=== PATIENT | male | born 1970 | race Caucasian/White ===

== ENCOUNTER → 2017-03-24 | Day surgery (SDC) | payer MEDICAID ==
[~2017-03-24] MED LIST: ASPI325T PO; GENTAMICIN SULFATE 80 MG/2 ML VIAL ONE; METO50TA PO; MIDAZOLAM HCL 2 MG/2 ML VIAL ONE; ONDANSETRON HCL 4 MG/2 ML VIAL IV PUSH ONE; PERC10TA27 PO; PERC5TAB12 PO; PROPOFOL 200 MG/20 ML AMP IV ONE; SODIUM CHLORIDE 0.9% INJ 100 ML IV ONE; XANA1TAB6 PO; ZOCO40TA PO
--- NOTE | 2017-03-24 15:06 | TN ---
cc: SAMMI VILLAR M.D. DATE OF SURGERY: 03/24/2017 PREOPERATIVE DIAGNOSIS Bladder tumor, (ICD-10 code D41.4). POSTOPERATIVE DIAGNOSIS Bladder tumor, (ICD-10 code D41.4). PROCEDURE Cystourethroscopy with transurethral resection of bladder tumor (TURBT), (CPT code 89905). INDICATIONS Mr. Camacho is a 46-year-old gentleman whose twin brother has a history of transitional cell carcinoma of the bladder and Mr. Camacho recently had some evidence of microscopic hematuria and on local cystoscopy he was found to have a bladder tumor. He presents now for definitive treatment fine. FINDINGS Urethra normal. Prostatic urethra shows bilateral hyperplasia with mild obstruction. The bladder neck is normal. The trigone shows ureteral orifice normal size, shape and position, effluxing clear urine bilaterally. The bladder shows an approximately 1.6 cm sessile tumor in the posterior bladder wall. There are no satellite tumors or other additional tumors or abnormal mucosa throughout the bladder. There is no evidence of trabeculation, diverticula, cellules or calcifications. DETAILS OF PROCEDURE The procedure as well as risks and benefits were explained to the patient. An informed consent was obtained. The patient was taken to the major operative theatre where he was placed in the supine position. The patient was identified as well as the operative site. A universal timeout was performed in the standard fashion. At this time general anesthetic and prophylactic intravenous antibiotics consisting of gentamicin 80 mg was administered. After adequate anesthetic, the patient was placed in low dorsal lithotomy position, prepped and draped in usual sterile fashion. At this time serial dilation of the navicularis fossa of the urethra was performed from 12-Slovak to 26-Slovak to allow a 22.5 Slovak cystoscope with 30-degree lens to be inserted using an obturator traversing the urethra without difficulty and into the bladder. At this time the 30-degree lens was exchanged for the 70-degree lens and the entire bladder was systematically surveyed with the above findings. At this time using rigid biopsy forceps and the 30-degree lens cystoscope, the tumor was resected. Several passes were needed to resect the entire tumor as well as a small margin of normal tissue. After determining the adequate depth of resection a Bugbee probe was used to fulgurate the base of the tumor as well as some normal-appearing tissue adjacent to it. There was no evidence of perforation of the bladder. There was good hemostasis at the end of the case. The bladder was then decompressed, the cystoscope removed. The patient tolerated the procedure well, emerged from anesthetic without difficulty, and transferred to the recovery room in stable condition to be discharged home when is criteria. There are no obvious complications. MD ROSY Robb/RADHA /2:48 PM /2:57 PM
== END | disposition home or self-care (01) ==
LOC: ESDC 10:32
PROVIDERS: ATTEND Urology
DX: C67.4 Malignant neoplasm of posterior wall of bladder (principal)
CPT/HCPCS: 00912; 52234; 88307; J1580; J2250; J2405; J3010

== ENCOUNTER → 2017-05-05 | Day surgery (SDC) | payer MEDICAID ==
[~2017-05-05] MED LIST changes: +LACTATED RINGER'S 1000 ML INJ 1,000 ML ONE; -SODIUM CHLORIDE 0.9% INJ 100 ML IV ONE
--- NOTE | 2017-05-05 11:41 | TN ---
cc: SAMMI VILLAR M.D. DATE OF SURGERY: 05/05/2017 PREOPERATIVE DIAGNOSIS Bladder cancer (ICD-10 code C67.4). POSTOPERATIVE DIAGNOSIS Bladder cancer (ICD-10 code C67.4). PROCEDURE Restaging transurethral resection of bladder tumor (TURBT), (CPT code 39724). INDICATIONS Mr. Camacho is a 46-year-old gentleman who previously underwent resection of a posterior sessile bladder tumor that was approximately 1.6 cm and was found to have high-grade transitional cell carcinoma with extensive acute and chronic inflammation. There was no muscularis propria present. He presents now for restaging biopsy and re-resection. FINDINGS Normal urethra. The prostatic urethra shows bilateral hyperplasia with mild obstruction, elevated normal bladder neck. The trigone shows ureteral orifices, normal size, shape and position, effluxing clear urine bilaterally. At the posterior bladder wall where the previous tumor was resected is evidence of nice healing tissue with some erythema circumferentially but no areas of suspicious lesions, residual tumor or other abnormalities. There is no evidence of trabeculation, diverticula, cellules or calcifications. PROCEDURE IN DETAIL The procedure as well as the risks and benefits were explained to the patient. Informed consent was obtained. The patient was taken to the major operating theater where he was placed in a supine position. The patient was identified as well as the operative site. The universal timeout was formed in standard fashion. At this time attempts at passing the 22.5 Bangladeshi obturator and sheath were unsuccessful and dilation of the meatus was performed using Dayami sounds from 16 Bangladeshi to 28 Bangladeshi so that the 22.5 Bangladeshi cystoscope with a 30 degree lens could be inserted without difficulty. This was placed all the way into the bladder where the entire bladder was systematically surveyed. The 30 degree lens was exchanged for the 70 degree lens. At this time attention was directed to the previous biopsy site and using rigid biopsy forceps the entire previous biopsy site was resected to the adequate depth to include muscle. There was no evidence of any perforation. A Bugbee probe was used to fulgurate the previous biopsy site as well as some additional normal tissue surrounding it. The specimens were sent for final pathological evaluation. After confirming hemostasis and no perforation the bladder was decompressed and the scope removed. The patient tolerated the procedure well, emerged from anesthetic without difficulty and was transferred to the recovery room in stable condition to be discharged home when criteria is met. There was no obvious complication. MD ROSY Robb/RADHA /11:14 AM /11:21 AM [place]
== END | disposition home or self-care (01) ==
LOC: ESDC 08:52
PROVIDERS: ATTEND Urology
DX: C67.4 Malignant neoplasm of posterior wall of bladder (principal)
CPT/HCPCS: 00912; 52234; 88307; J1580; J2250; J2405; J3010; J7120; 88305

== ENCOUNTER 2018-02-16 13:22 | Observation (INO) ==
[2018-02-16] MEDS ORDERED: Aspirin 325 MG Tablet PO ONE (13:32)
--- NOTE | 2018-02-16 13:42 | ED ---
HPI General Chief complaint: Chest Pain Stated complaint: Chest Pain x2days Hx of Heart Attack Time Seen by Provider: 02/16/18 13:32 History of Present Illness HPI narrative: 47-year-old male here for evaluation of chest pain. Pain started 2 days ago, comes and goes, located in the mid chest, dull, no radiation , rated 4 out of 10, no relation to physical activity, no sweating or palpitations, when it comes it lasts about a minute and goes away on its own. Patient had a cookout 2 days ago and thought it was gas, he tried over-the- counter gas medications with no help, he says the pain is been going on and off since then, no shortness of breath, no fever cough or chills or night sweats. On October 2010 he had a STEMI and had stenosis in mid segment of circumflex and was repaired using drug-eluting Xience 3 x 18 ml stent. He has been taken aspirin, simvastatin and metoprolol since then. Is compliant with his medications and follows up with his primary care physician Dr. Bah. Related Data Home Medications Medication Instructions Recorded Confirmed alprazolam [Xanax] 1 mg PO BID PRN 02/16/18 02/16/18 coenzyme Q10 [CoQ-10] 200 mg PO DAILY 02/16/18 02/16/18 metoprolol tartrate 25 mg PO HS 02/16/18 oxycodone-acetaminophen [Percocet] 1 tab PO Q4-6H PRN 02/16/18 02/16/18 simvastatin See Label Instructions .ROUTE 02/16/18 02/16/18 .COMPLEX zolpidem [Ambien] 1 tab PO HS PRN 02/16/18 02/16/18 Allergies Allergy/AdvReac Type Severity Reaction Status Date / Time No Known Allergies Allergy none Uncoded 02/16/18 13:47 Review of Systems Except as stated in HPI: all other systems reviewed are negative [facility] Medical History Medical History Anxiety (Acute) Back pain (Acute) Bladder cancer (Acute) Heart attack (Acute) Kidney stone (Acute) Surgical History Surgical History Stented coronary artery (Acute) Social History Social History Substance History: No History of Abuse Second Hand Smoke Exposure: No Smoking Status: Former smoker Tobacco Type: Cigarettes How Often Do You Have a Drink Containing Alcohol: Monthly or less Recent Travel in [facility] within the Last 8 Weeks: No Recent Out of Country Travel within the Last 8 Weeks: No Exam Narrative Exam Narrative: GENERAL: Alert oriented 3 no acute distress. SKIN: Focused skin assessment warm/dry. HEAD: Atraumatic. Normocephalic. EYES: Pupils equal and round. No scleral icterus. No injection or drainage. ENT: No nasal bleeding or discharge. Mucous membranes pink and moist. NECK: Trachea midline. No JVD. CARDIOVASCULAR: Regular rate and rhythm. No murmur appreciated. RESPIRATORY: No accessory muscle use. Clear to auscultation. Breath sounds equal bilaterally. GASTROINTESTINAL: Abdomen soft, non-tender, nondistended. Hepatic and splenic margins not palpable. MUSCULOSKELETAL: No obvious deformities. No clubbing. No cyanosis. No edema. NEUROLOGICAL: Awake and alert. No obvious cranial nerve deficits. Motor grossly within normal limits. Normal speech. PSYCHIATRIC: Appropriate mood and affect; insight and judgment normal. Course Initial Documented Vital Signs Pulse Rate 56 L 02/16/18 13:25 Respiratory Rate 18 02/16/18 13:25 Blood Pressure 154/85 H 02/16/18 13:25 Pulse Oximetry 98 02/16/18 13:25 Last Documented Vital Signs Temperature 97.9 F 02/16/18 13:30 Pulse Rate 51 L 02/16/18 15:20 Respiratory Rate 18 02/16/18 15:20 Blood Pressure 113/76 02/16/18 15:20 Pulse Oximetry 97 02/16/18 15:20 Medical Decision Making [facility] Narrative Medical decision making narrative: 47-year-old male history of coronary artery disease status post stent placed on October 2010 here for evaluation of chest pain. Vitals are stable, first EKG shows no ST segment elevation or depression although shows T-wave inversion in lead III and V2. First troponin is negative , patient will be admitted for chest pain center to rule out [place]. Lab Data Result diagrams: 02/16/18 13:41 02/16/18 13:41 Lab Results 02/16/18 02/16/18 02/16/18 Range/Units 13:41 13:41 13:41 CBC w Diff Auto diff final WBC 7.6 (4.0-11.0) th/mm3 RBC 5.44 (4.50-5.90) mil/mm3 Hgb 16.5 (13.0-17.0) gm/dL Hct 49.8 (39.0-51.0) % MCV 91.6 (80.0-100.0) fL MCH 30.4 (27.0-34.0) pg MCHC 33.2 (32.0-36.0) % RDW 12.6 (11.6-17.2) % Plt Count 265 (150-450) th/mm3 MPV 9.1 (7.0-11.0) fL Neut % (Auto) 59.0 (16.0-70.0) % Lymph % (Auto) 29.8 (9.0-44.0) % [place] % (Auto) 7.6 (0.0-8.0) % Eos % (Auto) 2.8 (0.0-4.0) % Baso % (Auto) 0.8 (0.0-2.0) % Neut # (Auto) 4.4 (1.8-7.7) th/mm3 Lymph # (Auto) 2.2 (1.0-4.8) th/mm3 [place] # (Auto) 0.6 (0.0-0.9) th/mm3 Eos # (Auto) 0.2 (0.0-0.4) th/mm3 Baso # (Auto) 0.1 (0.0-0.2) th/mm3 WBC Differential . Differential Comment . PT 11.0 (9.8-11.6) sec INR 1.1 Ratio APTT 24.1 L (24.3-30.1) sec D-Dimer Quant (PE/DVT) 0.26 (0.00-0.50) mg/L FEU Sodium (136-145) meq/L Potassium (3.5-5.1) meq/L Chloride (98-107) meq/L Carbon Dioxide (21.0-32.0) meq/L Anion Gap (5-15) meq/L BUN (7-18) mg/dL Creatinine (0.60-1.30) mg/dL Estimated GFR (>89) mL/min Random Glucose (74-106) mg/dL Calcium (8.5-10.1) mg/dL Magnesium (1.5-2.5) mg/dL Total Bilirubin (0.2-1.0) mg/dL AST (15-37) U/L ALT (12-78) U/L Alkaline Phosphatase (45-117) U/L Total Creatine Kinase (39-308) U/L Troponin I (0.02-0.05) ng/mL B-Natriuretic Peptide 35 (0-100) pg/mL Total Protein (6.4-8.2) g/dL Albumin (3.4-5.0) g/dL Lipase (73-393) U/L 02/16/18 Range/Units 13:41 CBC w Diff WBC (4.0-11.0) th/mm3 RBC (4.50-5.90) mil/mm3 Hgb (13.0-17.0) gm/dL Hct (39.0-51.0) % MCV (80.0-100.0) fL MCH (27.0-34.0) pg MCHC (32.0-36.0) % RDW (11.6-17.2) % Plt Count (150-450) th/mm3 MPV (7.0-11.0) fL Neut % (Auto) (16.0-70.0) % Lymph % (Auto) (9.0-44.0) % [place] % (Auto) (0.0-8.0) % Eos % (Auto) (0.0-4.0) % Baso % (Auto) (0.0-2.0) % Neut # (Auto) (1.8-7.7) th/mm3 Lymph # (Auto) (1.0-4.8) th/mm3 [place] # (Auto) (0.0-0.9) th/mm3 Eos # (Auto) (0.0-0.4) th/mm3 Baso # (Auto) (0.0-0.2) th/mm3 WBC Differential Differential Comment PT (9.8-11.6) sec INR Ratio APTT (24.3-30.1) sec D-Dimer Quant (PE/DVT) (0.00-0.50) mg/L FEU Sodium 139 (136-145) meq/L Potassium 4.2 (3.5-5.1) meq/L Chloride 105 (98-107) meq/L Carbon Dioxide 28.8 (21.0-32.0) meq/L Anion Gap 5 (5-15) meq/L BUN 10 (7-18) mg/dL Creatinine 1.00 (0.60-1.30) mg/dL Estimated GFR 79 L (>89) mL/min Random Glucose 87 (74-106) mg/dL Calcium 8.5 (8.5-10.1) mg/dL Magnesium 1.9 (1.5-2.5) mg/dL Total Bilirubin 0.3 (0.2-1.0) mg/dL AST 17 (15-37) U/L ALT 30 (12-78) U/L Alkaline Phosphatase 84 (45-117) U/L Total Creatine Kinase 63 (39-308) U/L Troponin I Less than 0.02 L (0.02-0.05) ng/mL B-Natriuretic Peptide (0-100) pg/mL Total Protein 7.3 (6.4-8.2) g/dL Albumin 3.7 (3.4-5.0) g/dL Lipase 142 (73-393) U/L Imaging Data Radiologist's impression: Chest X-Ray 02/16/18 13:33 CONCLUSION: 1. Minimal bibasilar linear parenchymal opacities likely reflecting atelectasis. Discharge Plan Discharge Disposition Patient Disposition: 30 Still Patient Discharge Condition Condition: Stable Discharge Details Diagnosis: Chest pain Physicians Team ED Provider: Armando Lin Primary Care Provider: Otto Bah Attending Provider: Angie Lozada Discharge Interventions Interventions: Vital Signs Last Done: 02/16/18 15:20 Status ED Status: Admitted Observation Patient
[2018-02-16 13:49] LABS: Baso # (Auto) 0.1 th/mm3 (0.0-0.2); Baso % (Auto) 0.8 % (0.0-2.0); Eos # (Auto) 0.2 th/mm3 (0.0-0.4); Eos % (Auto) 2.8 % (0.0-4.0); Hematocrit 49.8 % (39.0-51.0); Hemoglobin 16.5 gm/dL (13.0-17.0); Lymph # (Auto) 2.2 th/mm3 (1.0-4.8); Lymph % (Auto) 29.8 % (9.0-44.0); Mean Corpuscular HGB Conc 33.2 % (32.0-36.0); Mean Corpuscular Hemoglobin 30.4 pg (27.0-34.0); Mean Corpuscular Volume 91.6 fL (80.0-100.0); Mean Platelet Volume 9.1 fL (7.0-11.0); Mono # (Auto) 0.6 th/mm3 (0.0-0.9); Mono % (Auto) 7.6 % (0.0-8.0); Neut # (Auto) 4.4 th/mm3 (1.8-7.7); Platelet Count 265 th/mm3 (150-450); Red Blood Count 5.44 mil/mm3 (4.50-5.90); Red Cell Distribution Width 12.6 % (11.6-17.2); White Blood Count 7.6 th/mm3 (4.0-11.0)
[2018-02-16 13:58] LABS: Chloride 105 meq/L (98-107); Potassium 4.2 meq/L (3.5-5.1); Sodium 139 meq/L (136-145)
[2018-02-16 14:02] LABS: Albumin 3.7 g/dL (3.4-5.0); Anion Gap 5 meq/L (5-15); Calcium 8.5 mg/dL (8.5-10.1); Carbon Dioxide 28.8 meq/L (21.0-32.0); Lipase 142 U/L (73-393)
[2018-02-16 14:03] LABS: Blood Urea Nitrogen 10 mg/dL (7-18); Glucose,Random 87 mg/dL (74-106); Magnesium 1.9 mg/dL (1.5-2.5)
[2018-02-16 14:05] LABS: Alanine Aminotransferase 30 U/L (12-78); Aspartate Aminotransferase 17 U/L (15-37); Glomerular Filtration Rate 79 mL/min (>89)
[2018-02-16 14:07] LABS: Total Protein 7.3 g/dL (6.4-8.2)
[2018-02-16 14:19] LABS: Activated Partial Thrombo Time 24.1 sec (24.3-30.1); INR 1.1 Ratio
[2018-02-16 14:24] LABS: D-Dimer 0.26 mg/L FEU (0.00-0.50)
--- NOTE | 2018-02-16 14:54 | XR ---
EXAM DATE: 02/16/2018 1:49 PM EDT AGE/SEX: 47 years / Male INDICATIONS: . Chest pain. CLINICAL DATA: This is the patient's initial encounter. Patient reports that signs and symptoms have been present for 2 days and indicates a pain score of 7/10. MEDICAL/SURGICAL HISTORY: Hypertension. Myocardial infarction. . Cardiac stent. COMPARISON: [facility] [place], CHEST SINGLE AP, 11/21/2010. . FINDINGS: Minimal linear parenchymal opacities at the lung bases. The cardiomediastinal contours are stable. Osseous structures are intact. CONCLUSION: 1. Minimal bibasilar linear parenchymal opacities likely reflecting atelectasis. Electronically signed by: Jaswant Ansari MD 02/16/2018 2:53 PM EDT
[2018-02-16 15:20] LABS: Alkaline Phosphatase 84 U/L (45-117); Creatine Kinase 63 U/L (39-308)
[2018-02-16] MEDS ORDERED: Pantoprazole Inj 40 MG Vial IV.PUSH STA (15:37)
[2018-02-16] MEDS ORDERED: Acetaminophen 500 MG Tablet PO PRN (16:20)
--- NOTE | 2018-02-16 16:54 | P.HP ---
History of Present Illness Primary Care Physician: Otto Bah MD Chief Complaint: Chest pain History of Present Illness: Pt is a pleasant 47-year-old male with a hx of STEMI in 2010, Blader CA, and kidney stones who presented to the ED for evaluation of chest pain. Pt states that Pain started 2 days ago as a 9/10 sharp, non-radiating pain lasting for 5 minutes. The episodes reoccur several times a day. Exacerbating factors include eating food, and relieving factors are sitting up.Pain is not similar to the pain he had with previous RI and is not associated with physical activity. Pt denies diaphoresis, SOB, palpitations. pt also reports 1 day hx of constipation which was relieved with OTC stool softener and nausea that is now resolved. On October 2010 he had a STEMI and had stenosis in mid segment of circumflex and was repaired using drug-eluting Xience 3 x 18 ml stent. He has been taken aspirin, simvastatin and metoprolol since then. Is compliant with his medications and follows up with his primary care physician Dr. Bah. Inpatient Certification: I certify that the inpatient services were ordered in accordance with Medicare regulations governing the order. This includes certification that hospital inpatient services are reasonable and necessary and in the case of services not specified as inpatient-only under 42 CFR 419.22(n), that they are appropriately provided as inpatient services in accordance to with the 2-midnight benchmark under 43 CFR 412.3(e) Review of Systems All other systems reviewed negative except as stated in HPI PMFSH - History History Provided By: Patient, Family Member - Medical History Medical History: Medical History (Last Updated 02/16/18 @ 14:22 by Jennifer Baker) Anxiety Back pain Bladder cancer Heart attack Kidney stone - Surgical History Surgical History: Surgical History (Last Updated 02/16/18 @ 14:22 by Jennifer Baker) Stented coronary artery - Tobacco History Second Hand Smoke Exposure: No Tobacco Use In Past 30 Days: No Smoking Status: Former smoker Tobacco Type: Cigarettes - Alcohol History How Often Do You Have a Drink Containing Alcohol: Monthly or less - Substance Use History Substance History: No History of Abuse - Travel History Recent Travel in the [place] Within the Last 8 Weeks: No Recent Travel Out of the Country Within the Last 8 Weeks: No - Immunization History Tetanus Immunization: Unsure Hx Influenza Vaccine This Season: Yes Medications and Allergies Active Medications: Active Medications Acetaminophen (Tylenol) 500 mg PO Q4H PRN PRN Reason: HEADACHE Alprazolam (Xanax) 1 mg PO BID PRN PRN Reason: Anxiety Aspirin (Aspirin) 325 mg PO DAILY [facility] Famotidine (Pepcid) 20 mg PO BID [facility] Metoprolol Tartrate (Lopressor) 25 mg PO HS [facility] Pravastatin Sodium (Pravachol) 40 mg PO Q2D [facility] Sodium Chloride (Ns Flush) 2 ml IV.FLUSH BID [facility]EDRO Sodium Chloride (Ns Flush) 2 ml IV.FLUSH PRN PRN PRN Reason: FLUSH AFTER USING IV ACCESS Zolpidem Tartrate (Ambien) 10 mg PO HS PRN PRN Reason: insomnia Allergies Allergy/AdvReac Type Severity Reaction Status Date / Time No Known Allergies Allergy none Uncoded 02/16/18 13:47 Home Medications Medication Instructions Recorded Confirmed Type alprazolam [Xanax] 1 mg PO BID PRN 02/16/18 02/16/18 History coenzyme Q10 [CoQ-10] 200 mg PO DAILY 02/16/18 02/16/18 History metoprolol tartrate 25 mg PO HS 02/16/18 History oxycodone-acetaminophen [Percocet] 1 tab PO Q4-6H PRN 02/16/18 02/16/18 History simvastatin See Label Instructions .ROUTE 02/16/18 02/16/18 History .COMPLEX zolpidem [Ambien] 1 tab PO HS PRN 02/16/18 02/16/18 History Exam Vital signs: Vital Signs 02/16/18 13:25 02/16/18 13:30 02/16/18 14:20 Temperature 97.9 F Pulse Rate 56 L Respiratory Rate 18 18 16 Blood Pressure 154/85 H 149/88 H Pulse Oximetry 98 97 02/16/18 15:09 02/16/18 15:20 Temperature Pulse Rate 59 L 51 L Respiratory Rate 18 Blood Pressure 111/68 113/76 Pulse Oximetry 97 97 Intake & Output 02/15/18 02/16/18 02/16/18 18:59 06:59 18:59 Weight 82 kg Narrative: GENERAL: well developed, obese male, in NAD. SKIN: Warm and dry. HEAD: Atraumatic. Normocephalic. EYES: Pupils equal and round. No scleral icterus. No injection or drainage. ENT: No nasal bleeding or discharge. Mucous membranes pink and moist. NECK: Trachea midline. No JVD. CARDIOVASCULAR: Regular rate and rhythm. No murmurs, rubs, or gallops RESPIRATORY: No accessory muscle use. Clear to auscultation. Breath sounds equal bilaterally. GASTROINTESTINAL: Abdomen soft, non-tender, nondistended. Hepatic and splenic margins not palpable. negative Claudio sign MUSCULOSKELETAL: Extremities without clubbing, cyanosis, or edema. No obvious deformities. NEUROLOGICAL: Awake and alert. No obvious cranial nerve deficits. Motor grossly within normal limits. Five out of 5 muscle strength in the arms and legs. Normal speech. PSYCHIATRIC: Appropriate mood and affect; insight and judgment normal. - Constitutional no acute distress - Routine HEENT Exam Head: Present: normocephalic, atraumatic Eye: Present: EOMI, PERRL ENT: Present: mucous membranes moist - Routine Neck Exam Present: supple, full ROM - Routine Chest/Breast/Axilla Exam Chest wall: Absent: tenderness - Routine Respiratory Exam Present: CTA bilaterally. Absent: accessory muscle use - Routine Cardiovascular Exam Present: RRR, S1, S2 - Routine Abdominal Exam Present: soft, normoactive bowel sounds - Routine Extremities Exam Absent: cyanosis - Routine Skin Exam Present: intact - Routine Neurological Exam Present: alert, oriented X3 Results - Labs CBC & Chem 7: 02/16/18 13:41 02/16/18 13:41 Labs: Laboratory Results - last 24 hr 02/16/18 02/16/18 02/16/18 13:41 13:41 13:41 CBC w Diff Auto diff final WBC 7.6 RBC 5.44 Hgb 16.5 Hct 49.8 MCV 91.6 MCH 30.4 MCHC 33.2 RDW 12.6 Plt Count 265 MPV 9.1 Neut % (Auto) 59.0 Lymph % (Auto) 29.8 [place] % (Auto) 7.6 Eos % (Auto) 2.8 Baso % (Auto) 0.8 Neut # (Auto) 4.4 Lymph # (Auto) 2.2 [place] # (Auto) 0.6 Eos # (Auto) 0.2 Baso # (Auto) 0.1 WBC Differential . Differential Comment . PT 11.0 INR 1.1 APTT 24.1 L D-Dimer Quant (PE/DVT) 0.26 Sodium Potassium Chloride Carbon Dioxide Anion Gap BUN Creatinine Estimated GFR Random Glucose Calcium Magnesium Total Bilirubin AST ALT Alkaline Phosphatase Total Creatine Kinase Troponin I B-Natriuretic Peptide 35 Total Protein Albumin Lipase 02/16/18 13:41 CBC w Diff WBC RBC Hgb Hct MCV MCH MCHC RDW Plt Count MPV Neut % (Auto) Lymph % (Auto) [place] % (Auto) Eos % (Auto) Baso % (Auto) Neut # (Auto) Lymph # (Auto) [place] # (Auto) Eos # (Auto) Baso # (Auto) WBC Differential Differential Comment PT INR APTT D-Dimer Quant (PE/DVT) Sodium 139 Potassium 4.2 Chloride 105 Carbon Dioxide 28.8 Anion Gap 5 BUN 10 Creatinine 1.00 Estimated GFR 79 L Random Glucose 87 Calcium 8.5 Magnesium 1.9 Total Bilirubin 0.3 AST 17 ALT 30 Alkaline Phosphatase 84 Total Creatine Kinase 63 Troponin I Less than 0.02 L B-Natriuretic Peptide Total Protein 7.3 Albumin 3.7 Lipase 142 - Imaging Impressions Chest X-Ray 02/16/18 13:33 CONCLUSION: 1. Minimal bibasilar linear parenchymal opacities likely reflecting atelectasis. Caprini VTE Risk Assessment Caprini Risk Assessment Model: Point Value = 1 Point Value = 2 Point Value = 3 Point Value = 5 Age 41-60 Minor surgery BMI > 25 kg/m2 Swollen legs Varicose veins or History of unexplained or recurrent spontaneous Oral contraceptives or hormone replacement Sepsis (< 1 month) Serious lung disease, including pneumonia (< 1 month) Abnormal pulmonary function Acute myocardial infarction Congestive heart failure (< 1 month) History of inflammatory bowel disease Medical patient at bed rest Age 61-74 Arthroscopic surgery Major open surgery (> 45 min) Laparoscopic surgery (> 45 min) Malignancy Confined to bed (> 72 hours) Immobilizing plaster cast Central venous access Age >= 75 History of VTE Family history of VTE Factor V Leiden Prothrombin [id number] Lupus anticoagulant Anticardiolipin antibodies Elevated serum homocysteine Heparin-induced thrombocytopenia Other congenital or acquired thrombophilia Stroke (< 1 month) Elective arthroplasty Hip, pelvis, or leg fracture Acute spinal cord injury (< 1 month) Prophylaxis Regimen: Total Risk Factor Score Risk Level Prophylaxis Regimen 0-1 Low Early ambulation 2 Moderate Order ONE of the following: *Sequential Compression Device (SCD) *Heparin 5000 units SQ BID 3-4 Higher Order ONE of the following medications: *Heparin 5000 units SQ TID *Enoxaparin/Lovenox 40 mg SQ daily (WT < 150 kg, CrCl > 30 mL/min) *Enoxaparin/Lovenox 30 mg SQ daily (WT < 150 kg, CrCl > 10-29 mL/min) *Enoxaparin/Lovenox 30 mg SQ BID (WT < 150 kg, CrCl > 30 mL/min) AND/OR *Sequential Compression Device (SCD) 5 or more Highest Order ONE of the following medications: *Heparin 5000 units SQ TID (Preferred with Epidurals) *Enoxaparin/Lovenox 40 mg SQ daily (WT < 150 kg, CrCl > 30 mL/min) *Enoxaparin/Lovenox 30 mg SQ daily (WT < 150 kg, CrCl > 10-29 mL/min) *Enoxaparin/Lovenox 30 mg SQ BID (WT < 150 kg, CrCl > 30 mL/min) AND *Sequential Compression Device (SCD) Assessment and Plan - Plan 1. CP, nonspecified pt has a 2 day hx of waxing and waning 9/10 CP associated with diaphoresis. Pain is not increased with activity and is non-radiating. Troponin level at the ED was normal and 2 EKGs obtained were unchanged from previous Due to previous hx of STEMI with a stent placement pt will be admitted to the CP clinic for further observation obtain serial Troponin Repeat EKG 2. Bladder CA, resolved pt has been following up with Urologist 3. Hypertension, stable Pt has a hx of HTN His BP has been stable. Continue home medication follow up with PCP 4. Hyperlipidemia, chronic continue home medication F/U with PCP
--- NOTE | 2018-02-16 17:24 | P.HPIM ---
History of Present Illness Primary Care Physician: Otto Bah MD Chief Complaint: Chest pain History of Present Illness: Patient is a very pleasant 47-year-old gentleman with a history of coronary artery disease in 2011 status post cardiac stenting and catheterization. Patient has been taking metoprolol and atorvastatin. He reports 2-3 days of intermittent nonradiating spontaneously. It is exacerbated by food and improved by changing position. He does exercise on a treadmill without chest pain or shortness of breath unexpected for the degree of exercise. He notes no fevers or chills. No recent cough. He is not currently a smoker. The patient is come to the hospital for further evaluation. He is concerned that it is gastrointestinal related. He has not tried any Tums or Pepcid at home. For evaluation of atypical chest discomfort - Diagnosis (1) Abdominal pain (2) Chest pain Inpatient Certification: I certify that the inpatient services were ordered in accordance with Medicare regulations governing the order. This includes certification that hospital inpatient services are reasonable and necessary and in the case of services not specified as inpatient-only under 42 CFR 419.22(n), that they are appropriately provided as inpatient services in accordance to with the 2-midnight benchmark under 43 CFR 412.3(e) Review of Systems All other systems reviewed negative except as stated in HPI Cardiovascular: Reports chest pain Gastrointestinal: Reports constipation, Reports excessive passing of gas PMFSH - History History Provided By: Patient, Family Member - Medical History Medical History: Medical History (Last Reviewed 02/16/18 @ 17:19 by Angie Lozada MD) Anxiety Back pain Bladder cancer Heart attack Kidney stone - Surgical History Surgical History: Surgical History (Last Reviewed 02/16/18 @ 17:19 by Angie Lozada MD) Stented coronary artery - Family History Family History: Family History (Last Updated 02/16/18 @ 17:19 by Angie Lozada MD) Other Bladder cancer - Tobacco History Second Hand Smoke Exposure: No Tobacco Use In Past 30 Days: No Smoking Status: Former smoker Tobacco Type: Cigarettes - Alcohol History How Often Do You Have a Drink Containing Alcohol: Monthly or less - Substance Use History Substance History: No History of Abuse - Travel History Recent Travel in the [place] Within the Last 8 Weeks: No Recent Travel Out of the Country Within the Last 8 Weeks: No - Immunization History Tetanus Immunization: Unsure Hx Influenza Vaccine This Season: Yes Medications and Allergies Active Medications: Active Medications Acetaminophen (Tylenol) 500 mg PO Q4H PRN PRN Reason: HEADACHE Alprazolam (Xanax) 1 mg PO BID PRN PRN Reason: Anxiety Aspirin (Aspirin) 325 mg PO DAILY [facility] Famotidine (Pepcid) 20 mg PO BID [facility] Metoprolol Tartrate (Lopressor) 25 mg PO HS [facility] Pravastatin Sodium (Pravachol) 40 mg PO Q2D PEDRO Sodium Chloride (Ns Flush) 2 ml IV.FLUSH BID PEDRO Sodium Chloride (Ns Flush) 2 ml IV.FLUSH PRN PRN PRN Reason: FLUSH AFTER USING IV ACCESS Zolpidem Tartrate (Ambien) 10 mg PO HS PRN PRN Reason: insomnia Allergies Allergy/AdvReac Type Severity Reaction Status Date / Time No Known Allergies Allergy none Uncoded 02/16/18 13:47 Home Medications Medication Instructions Recorded Confirmed Type alprazolam [Xanax] 1 mg PO BID PRN 02/16/18 02/16/18 History coenzyme Q10 [CoQ-10] 200 mg PO DAILY 02/16/18 02/16/18 History metoprolol tartrate 25 mg PO HS 02/16/18 History oxycodone-acetaminophen [Percocet] 1 tab PO Q4-6H PRN 02/16/18 02/16/18 History simvastatin See Label Instructions .ROUTE 02/16/18 02/16/18 History .COMPLEX zolpidem [Ambien] 1 tab PO HS PRN 02/16/18 02/16/18 History Exam Vital signs: Vital Signs 02/16/18 13:25 02/16/18 13:30 02/16/18 14:20 Temperature 97.9 F Pulse Rate 56 L Respiratory Rate 18 18 16 Blood Pressure 154/85 H 149/88 H Pulse Oximetry 98 97 02/16/18 15:09 02/16/18 15:20 Temperature Pulse Rate 59 L 51 L Respiratory Rate 16 18 Blood Pressure 111/68 113/76 Pulse Oximetry 97 97 Intake & Output 02/15/18 02/16/18 02/16/18 18:59 06:59 18:59 Weight 82 kg Narrative: GENERAL: Patient calm resting and without complaints SKIN: Warm and dry. No rashes or ecchymotic injuries EYES: Pupils equal and round. No scleral icterus. No injection or drainage. ENT: External ear exam normal. No acute nasal bleeding or discharge. Mucous membranes pink and moist. CARDIOVASCULAR: Regular rate and rhythm. No murmurs gallops or rubs appreciated RESPIRATORY: Good air flow and effort without accessory muscle use. Clear to auscultation. Breath sounds equal bilaterally. GASTROINTESTINAL: Abdomen soft, non-tender, nondistended. Hepatic and splenic margins not palpable. MUSCULOSKELETAL: Extremities without clubbing, cyanosis, or edema. No obvious deformities. NEUROLOGICAL: Awake and alert. No obvious cranial nerve deficits. Motor grossly within normal limits. Five out of 5 muscle strength in the arms and legs. Normal speech. Results - Labs CBC & Chem 7: 02/16/18 13:41 02/16/18 13:41 Labs: Short CBC 02/16/18 Range/Units 13:41 WBC 7.6 (4.0-11.0) th/mm3 Hgb 16.5 (13.0-17.0) gm/dL Hct 49.8 (39.0-51.0) % Plt Count 265 (150-450) th/mm3 BMP 02/16/18 13:41 Sodium 139 Potassium 4.2 Chloride 105 Carbon Dioxide 28.8 BUN 10 Creatinine 1.00 Calcium 8.5 Cardiac Enzymes 02/16/18 Range/Units 13:41 Total Creatine Kinase 63 (39-308) U/L Troponin I Less than 0.02 L (0.02-0.05) ng/mL Liver Function 02/16/18 Range/Units 13:41 Total Bilirubin 0.3 (0.2-1.0) mg/dL AST 17 (15-37) U/L ALT 30 (12-78) U/L Alkaline Phosphatase 84 (45-117) U/L Albumin 3.7 (3.4-5.0) g/dL - Imaging Impressions Chest X-Ray 02/16/18 13:33 CONCLUSION: 1. Minimal bibasilar linear parenchymal opacities likely reflecting atelectasis. Caprini VTE Risk Assessment Caprini VTE Risk Assessment: No/Low Risk (score <= 1) Caprini Risk Assessment Model: Point Value = 1 Point Value = 2 Point Value = 3 Point Value = 5 Age 41-60 Minor surgery BMI > 25 kg/m2 Swollen legs Varicose veins or History of unexplained or recurrent spontaneous Oral contraceptives or hormone replacement Sepsis (< 1 month) Serious lung disease, including pneumonia (< 1 month) Abnormal pulmonary function Acute myocardial infarction Congestive heart failure (< 1 month) History of inflammatory bowel disease Medical patient at bed rest Age 61-74 Arthroscopic surgery Major open surgery (> 45 min) Laparoscopic surgery (> 45 min) Malignancy Confined to bed (> 72 hours) Immobilizing plaster cast Central venous access Age >= 75 History of VTE Family history of VTE Factor V Leiden Prothrombin [id number] Lupus anticoagulant Anticardiolipin antibodies Elevated serum homocysteine Heparin-induced thrombocytopenia Other congenital or acquired thrombophilia Stroke (< 1 month) Elective arthroplasty Hip, pelvis, or leg fracture Acute spinal cord injury (< 1 month) Prophylaxis Regimen: Total Risk Factor Score Risk Level Prophylaxis Regimen 0-1 Low Early ambulation 2 Moderate Order ONE of the following: *Sequential Compression Device (SCD) *Heparin 5000 units SQ BID 3-4 Higher Order ONE of the following medications: *Heparin 5000 units SQ TID *Enoxaparin/Lovenox 40 mg SQ daily (WT < 150 kg, CrCl > 30 mL/min) *Enoxaparin/Lovenox 30 mg SQ daily (WT < 150 kg, CrCl > 10-29 mL/min) *Enoxaparin/Lovenox 30 mg SQ BID (WT < 150 kg, CrCl > 30 mL/min) AND/OR *Sequential Compression Device (SCD) 5 or more Highest Order ONE of the following medications: *Heparin 5000 units SQ TID (Preferred with Epidurals) *Enoxaparin/Lovenox 40 mg SQ daily (WT < 150 kg, CrCl > 30 mL/min) *Enoxaparin/Lovenox 30 mg SQ daily (WT < 150 kg, CrCl > 10-29 mL/min) *Enoxaparin/Lovenox 30 mg SQ BID (WT < 150 kg, CrCl > 30 mL/min) AND *Sequential Compression Device (SCD) Assessment and Plan - Assessment (1) Abdominal pain Code(s): R10.9 - Unspecified abdominal pain Status: Acute Plan: Atypical in nature, will add proton pump inhibitor Follow-up ultrasound and CT abdomen pelvis Patient reports improvement in symptoms after constipation relief (2) Chest pain Code(s): R07.9 - Chest pain, unspecified Status: Acute Plan: Likely GI related Patient with significant risk factors for coronary disease however Continue with chest pain evaluation and chest pain center Continue metoprolol and simvastatin given for coronary artery disease and stent (2) Chest pain Qualifiers: Chest pain type: unspecified Qualified Code(s): R07.9 - Chest pain, unspecified
[2018-02-16 17:39] LABS: Creatine Kinase 46 U/L (39-308)
[2018-02-16] MEDS ORDERED: Diatrizoate Meglum/Diatrizoate Sod Liq 9 ML UDC PO ONE (18:00)
[2018-02-16] MEDS: Famotidine 20 MG Tablet PO SCH (20:17)
[2018-02-16] MEDS: Docusate Sodium 100 MG Capsule PO SCH (20:19)
[2018-02-16 20:41] LABS: Creatine Kinase 99 U/L (39-308)
[2018-02-16 20:51] LABS: Amphetamine Screen,Urine Neg (Neg); Barbiturate Screen,Urine Neg (Neg); Cannabinoid Screen,Urine Neg (Neg); Cocaine Screen,Urine Neg (Neg)
[2018-02-16 20:52] LABS: Opiate Screen,Urine Neg (Neg)
[2018-02-16] MEDS ORDERED: Metoprolol Tartrate 25 MG Tablet PO SCH (21:00)
--- NOTE | 2018-02-16 23:20 | CT ---
EXAM DATE: 02/16/2018 11:08 PM EDT AGE/SEX: 47 years / Male INDICATIONS: Epigastric pain. CLINICAL DATA: This is the patient's initial encounter. Patient reports that signs and symptoms have been present for 3 days and indicates a pain score of 8/10. MEDICAL/SURGICAL HISTORY: Carcinoma, bladder. Cardiovascular disease. Coronary artery stent. RADIATION DOSE: 12.73 CTDI (mGy) COMPARISON: [facility], CT ABDOMEN & PELVIS W/O CONTRAST, 06/29/2015. . TECHNIQUE: Multiple contiguous axial images were obtained through the abdomen. Images were obtained using multiple row detector helical technique. Using automated exposure control and adjustment of the mA and/or kV according to patient size, radiation dose was kept as low as reasonably achievable to o btain optimal diagnostic quality images. DICOM format image data is available electronically for rev iew and comparison. FINDINGS: Lung bases demonstrate minimal linear scarring. No acute findings in the liver, spleen, adrenals, right kidney or pancreas. There is a nonobstructing 3 mm calculus mid left kidney. No pelvic masses or adenopathy. No free fluid or free air. No bowel obstruction. No acute bony abnorm alities. Stable bone island left posterior iliac bone compared with 2014. CONCLUSION: 1. No acute findings. Linear scarring right lower lobe. Nonobstructing 3 mm left renal calculus. Mil d constipation. Electronically signed by: Alexander Vaughn MD 02/16/2018 11:18 PM EDT
[2018-02-17 06:49] LABS: Bilirubin,Urine Negative (Negative); Clarity,Urine Clear (Clear); Color,Urine Yellow (Yellw/Straw); Glucose,Urine (UA) Negative (Negative); Leukocyte Esterase,Urine Negative (Negative); Nitrite,Urine Negative (Negative); Urobilinogen,Urine 0.2 mg/dL (Less than 2)
[2018-02-17 06:52] LABS: Collection Time,Urine 630 hours
[2018-02-17 06:53] LABS: Squamous Epithelial Cell,Urine 0-5 /hpf (0-5)
--- NOTE | 2018-02-17 08:06 | US ---
EXAM DATE: 02/17/2018 8:01 AM EDT AGE/SEX: 47 years / Male INDICATIONS: Abdominal pain. CLINICAL DATA: This is the patient's initial encounter. Patient reports that signs and symptoms have been present for 3 days and indicates a pain score of 8/10. MEDICAL/SURGICAL HISTORY: . Anxiety. Back pain. Bladder cancer. Myocardial infarction. Kidney s tone. Coronary artery stent. COMPARISON: [facility], CT ABDOMEN & PELVIS W/O CONTRAST, 02/16/2018. . MEASUREMENTS: Liver:__ 14.5 cm. Common Bile Duct:__ 7mm. Right Kidney:__ cm. FINDINGS: Liver: No significant focal lesion or ductal dilation. Portal Vein: Hepatopedal flow seen in portal vein. Common Duct: No intraluminal mass or stone visualized. Gallbladder: Demonstrates no wall thickening or pericholecystic fluid. No stones visualized. Pancreas: Not well visualized. Right Kidney: Normal echotexture and cortical thickness. No mass or hydronephrosis. Other: None. CONCLUSION: 1. Unremarkable right upper quadrant ultrasound exam. 2. Specifically, no sonographic evidence for cholelithiasis or acute cholecystitis. Electronically signed by: Jaswant Ansari MD 02/17/2018 8:05 AM EDT
[2018-02-17] MEDS ORDERED: Aspirin 325 MG Tablet PO SCH (09:00)
[2018-02-17] MEDS: Docusate Sodium 100 MG Capsule PO SCH (09:43)
[2018-02-17] MEDS: Famotidine 20 MG Tablet PO SCH (09:44)
--- NOTE | 2018-02-17 10:51 | P.PN ---
Subjective Interval history: Pt is sitting comfortably on the hospital bed. Reports persistence of the pain despite medication. Denies fever, chills, nausea, vomiting,SOB, diaphoresis. Serial Troponin levels were all <0.02. serial EKGs were all unchanged from previous. CT abdomen and pelvis only revealed a 3 mm non-obstructing L renal stone. RUQ U/S was negative for cholelithiasis or cholecystitis. Physical Exam Vital signs: Vital Signs 02/16/18 13:25 02/16/18 13:30 02/16/18 14:20 Temperature 97.9 F Pulse Rate 56 L Respiratory Rate 18 18 16 Blood Pressure 154/85 H 149/88 H Pulse Oximetry 98 97 02/16/18 15:09 02/16/18 15:20 02/16/18 17:48 Temperature Pulse Rate 59 L 51 L 55 L Respiratory Rate 16 18 16 Blood Pressure 111/68 113/76 119/78 Pulse Oximetry 97 97 02/16/18 18:14 02/16/18 19:57 02/16/18 20:00 Temperature 97.8 F 96.5 F L Pulse Rate 50 L 51 L Respiratory Rate 18 20 Blood Pressure 127/76 130/75 Pulse Oximetry 99 99 96 02/17/18 00:00 02/17/18 04:00 02/17/18 08:00 Temperature 97.3 F L 96 F L 97.2 F L Pulse Rate 54 L 49 L 51 L Respiratory Rate 20 20 16 Blood Pressure 118/75 100/70 114/75 Pulse Oximetry 97 96 99 Intake & Output 02/16/18 02/17/18 02/17/18 18:59 06:59 18:59 Intake Total 120 / 120 Output Total 700 / 700 Balance -580 / -580 Weight 82 kg 80.6 kg Intake: Oral 120 / 120 Output: Urine 700 / 700 Other: # Voids 2 Weight On Admission 81.1 kg Results - Labs CBC & Chem 7: 02/16/18 13:41 02/16/18 13:41 Laboratory Results - last 24 hr 02/16/18 02/16/18 02/16/18 13:41 13:41 13:41 CBC w Diff Auto diff final WBC 7.6 RBC 5.44 Hgb 16.5 Hct 49.8 MCV 91.6 MCH 30.4 MCHC 33.2 RDW 12.6 Plt Count 265 MPV 9.1 Neut % (Auto) 59.0 Lymph % (Auto) 29.8 [place] % (Auto) 7.6 Eos % (Auto) 2.8 Baso % (Auto) 0.8 Neut # (Auto) 4.4 Lymph # (Auto) 2.2 [place] # (Auto) 0.6 Eos # (Auto) 0.2 Baso # (Auto) 0.1 WBC Differential . Differential Comment . PT 11.0 INR 1.1 APTT 24.1 L D-Dimer Quant (PE/DVT) 0.26 Sodium Potassium Chloride Carbon Dioxide Anion Gap BUN Creatinine Estimated GFR Random Glucose Calcium Magnesium Total Bilirubin AST ALT Alkaline Phosphatase Total Creatine Kinase Troponin I B-Natriuretic Peptide 35 Total Protein Albumin Lipase Ur Collection Type Urine Color Urine Clarity Urine pH Ur Specific [place] Urine Protein Urine Glucose (UA) Urine Ketones Urine Occult Blood Urine Nitrate Urine Bilirubin Urine Urobilinogen Ur Leukocyte Esterase Ur Squamous Epith Cells Micro UA Comment Urine Culture Comments Urine Collection Time Urine Opiates Screen Ur Barbiturates Screen Ur Amphetamines Screen U Benzodiazepines Scrn Urine Cocaine Screen U Cannabinoids Screen 02/16/18 02/16/18 02/16/18 13:41 16:55 20:00 CBC w Diff WBC RBC Hgb Hct MCV MCH MCHC RDW Plt Count MPV Neut % (Auto) Lymph % (Auto) [place] % (Auto) Eos % (Auto) Baso % (Auto) Neut # (Auto) Lymph # (Auto) [place] # (Auto) Eos # (Auto) Baso # (Auto) WBC Differential Differential Comment PT INR APTT D-Dimer Quant (PE/DVT) Sodium 139 Potassium 4.2 Chloride 105 Carbon Dioxide 28.8 Anion Gap 5 BUN 10 Creatinine 1.00 Estimated GFR 79 L Random Glucose 87 Calcium 8.5 Magnesium 1.9 Total Bilirubin 0.3 AST 17 ALT 30 Alkaline Phosphatase 84 Total Creatine Kinase 63 46 99 Troponin I Less than 0.02 L Less than 0.02 L Less than 0.02 L B-Natriuretic Peptide Total Protein 7.3 Albumin 3.7 Lipase 142 Ur Collection Type Urine Color Urine Clarity Urine pH Ur Specific [place] Urine Protein Urine Glucose (UA) Urine Ketones Urine Occult Blood Urine Nitrate Urine Bilirubin Urine Urobilinogen Ur Leukocyte Esterase Ur Squamous Epith Cells Micro UA Comment Urine Culture Comments Urine Collection Time Urine Opiates Screen Ur Barbiturates Screen Ur Amphetamines Screen U Benzodiazepines Scrn Urine Cocaine Screen U Cannabinoids Screen 02/16/18 02/17/18 20:25 06:30 CBC w Diff WBC RBC Hgb Hct MCV MCH MCHC RDW Plt Count MPV Neut % (Auto) Lymph % (Auto) [place] % (Auto) Eos % (Auto) Baso % (Auto) Neut # (Auto) Lymph # (Auto) [place] # (Auto) Eos # (Auto) Baso # (Auto) WBC Differential Differential Comment PT INR APTT D-Dimer Quant (PE/DVT) Sodium Potassium Chloride Carbon Dioxide Anion Gap BUN Creatinine Estimated GFR Random Glucose Calcium Magnesium Total Bilirubin AST ALT Alkaline Phosphatase Total Creatine Kinase Troponin I B-Natriuretic Peptide Total Protein Albumin Lipase Ur Collection Type Clean catch Urine Color Yellow Urine Clarity Clear Urine pH 6.0 Ur Specific [place] 1.010 Urine Protein Negative Urine Glucose (UA) Negative Urine Ketones Negative Urine Occult Blood Negative Urine Nitrate Negative Urine Bilirubin Negative Urine Urobilinogen 0.2 Ur Leukocyte Esterase Negative Ur Squamous Epith Cells 0-5 Micro UA Comment Culture not ind Urine Culture Comments Culture not ind Urine Collection Time 630 Urine Opiates Screen Neg Ur Barbiturates Screen Neg Ur Amphetamines Screen Neg U Benzodiazepines Scrn Pos H Urine Cocaine Screen Neg U Cannabinoids Screen Neg - Imaging Impressions Abdomen/Pelvis CT 02/16/18 00:00 CONCLUSION: 1. No acute findings. Linear scarring right lower lobe. Nonobstructing 3 mm left renal calculus. Mild constipation. Chest X-Ray 02/16/18 13:33 CONCLUSION: 1. Minimal bibasilar linear parenchymal opacities likely reflecting atelectasis. Liver Ultrasound 02/17/18 00:00 CONCLUSION: 1. Unremarkable right upper quadrant ultrasound exam. 2. Specifically, no sonographic evidence for cholelithiasis or acute cholecystitis. Assessment and Plan - Plan 1. CP, nonspecified pt has a 2 day hx of waxing and waning 9/10 CP associated with diaphoresis. Pain is not increased with activity and is non-radiating. Serial Troponin levels were all normal and serial EKGs obtained were unchanged from previous Due to previous hx of STEMI with a stent placement and the presence of atypical pt, pt is a good candidate for treadmill Stress test. 2. Bladder CA, resolved pt has been following up with Urologist 3. Hypertension, stable Pt has a hx of HTN His BP has been stable. Continue home medication follow up with PCP 4. Hyperlipidemia, chronic continue home medication F/U with PCP
--- NOTE | 2018-02-17 12:37 | P.PNIM ---
Subjective Interval history: Patient seen and evaluated today in follow-up for atypical chest discomfort, CT and ultrasound negative, patient now agreeable for stress test Physical Exam Vital signs: Vital Signs 02/16/18 13:25 02/16/18 13:30 02/16/18 14:20 Temperature 97.9 F Pulse Rate 56 L Respiratory Rate 18 18 16 Blood Pressure 154/85 H 149/88 H Pulse Oximetry 98 97 02/16/18 15:09 02/16/18 15:20 02/16/18 17:48 Temperature Pulse Rate 59 L 51 L 55 L Respiratory Rate 16 18 16 Blood Pressure 111/68 113/76 119/78 Pulse Oximetry 97 97 02/16/18 18:14 02/16/18 19:57 02/16/18 20:00 Temperature 97.8 F 96.5 F L Pulse Rate 50 L 51 L Respiratory Rate 18 20 Blood Pressure 127/76 130/75 Pulse Oximetry 99 99 96 02/17/18 00:00 02/17/18 04:00 02/17/18 08:00 Temperature 97.3 F L 96 F L 97.2 F L Pulse Rate 54 L 49 L 51 L Respiratory Rate 20 20 16 Blood Pressure 118/75 100/70 114/75 Pulse Oximetry 97 96 99 02/17/18 12:00 Temperature 96.3 F L Pulse Rate 52 L Respiratory Rate 16 Blood Pressure 112/70 Pulse Oximetry 95 Intake & Output 02/16/18 02/17/18 02/17/18 18:59 06:59 18:59 Intake Total 120 / 120 Output Total 700 / 700 Balance -580 / -580 Weight 82 kg 80.6 kg Intake: Oral 120 / 120 Output: Urine 700 / 700 Other: # Voids 2 Weight On Admission 81.1 kg Narrative: GENERAL: Patient calm resting and without complaints SKIN: Warm and dry. No rashes or ecchymotic injuries EYES: Pupils equal and round. No scleral icterus. No injection or drainage. ENT: External ear exam normal. No acute nasal bleeding or discharge. Mucous membranes pink and moist. CARDIOVASCULAR: Regular rate and rhythm. No murmurs gallops or rubs appreciated RESPIRATORY: Good air flow and effort without accessory muscle use. Clear to auscultation. Breath sounds equal bilaterally. GASTROINTESTINAL: Abdomen soft, non-tender, nondistended. Hepatic and splenic margins not palpable. MUSCULOSKELETAL: Extremities without clubbing, cyanosis, or edema. No obvious deformities. NEUROLOGICAL: Awake and alert. No obvious cranial nerve deficits. Motor grossly within normal limits. Five out of 5 muscle strength in the arms and legs. Normal speech. Results - Labs CBC & Chem 7: 02/16/18 13:41 02/16/18 13:41 Laboratory Results - last 24 hr 02/16/18 02/16/18 02/16/18 13:41 13:41 13:41 CBC w Diff Auto diff final WBC 7.6 RBC 5.44 Hgb 16.5 Hct 49.8 MCV 91.6 MCH 30.4 MCHC 33.2 RDW 12.6 Plt Count 265 MPV 9.1 Neut % (Auto) 59.0 Lymph % (Auto) 29.8 [place] % (Auto) 7.6 Eos % (Auto) 2.8 Baso % (Auto) 0.8 Neut # (Auto) 4.4 Lymph # (Auto) 2.2 [place] # (Auto) 0.6 Eos # (Auto) 0.2 Baso # (Auto) 0.1 WBC Differential . Differential Comment . PT 11.0 INR 1.1 APTT 24.1 L D-Dimer Quant (PE/DVT) 0.26 Sodium Potassium Chloride Carbon Dioxide Anion Gap BUN Creatinine Estimated GFR Random Glucose Calcium Magnesium Total Bilirubin AST ALT Alkaline Phosphatase Total Creatine Kinase Troponin I B-Natriuretic Peptide 35 Total Protein Albumin Lipase Ur Collection Type Urine Color Urine Clarity Urine pH Ur Specific [place] Urine Protein Urine Glucose (UA) Urine Ketones Urine Occult Blood Urine Nitrate Urine Bilirubin Urine Urobilinogen Ur Leukocyte Esterase Ur Squamous Epith Cells Micro UA Comment Urine Culture Comments Urine Collection Time Urine Opiates Screen Ur Barbiturates Screen Ur Amphetamines Screen U Benzodiazepines Scrn Urine Cocaine Screen U Cannabinoids Screen 02/16/18 02/16/18 02/16/18 13:41 16:55 20:00 CBC w Diff WBC RBC Hgb Hct MCV MCH MCHC RDW Plt Count MPV Neut % (Auto) Lymph % (Auto) [place] % (Auto) Eos % (Auto) Baso % (Auto) Neut # (Auto) Lymph # (Auto) [place] # (Auto) Eos # (Auto) Baso # (Auto) WBC Differential Differential Comment PT INR APTT D-Dimer Quant (PE/DVT) Sodium 139 Potassium 4.2 Chloride 105 Carbon Dioxide 28.8 Anion Gap 5 BUN 10 Creatinine 1.00 Estimated GFR 79 L Random Glucose 87 Calcium 8.5 Magnesium 1.9 Total Bilirubin 0.3 AST 17 ALT 30 Alkaline Phosphatase 84 Total Creatine Kinase 63 46 99 Troponin I Less than 0.02 L Less than 0.02 L Less than 0.02 L B-Natriuretic Peptide Total Protein 7.3 Albumin 3.7 Lipase 142 Ur Collection Type Urine Color Urine Clarity Urine pH Ur Specific [place] Urine Protein Urine Glucose (UA) Urine Ketones Urine Occult Blood Urine Nitrate Urine Bilirubin Urine Urobilinogen Ur Leukocyte Esterase Ur Squamous Epith Cells Micro UA Comment Urine Culture Comments Urine Collection Time Urine Opiates Screen Ur Barbiturates Screen Ur Amphetamines Screen U Benzodiazepines Scrn Urine Cocaine Screen U Cannabinoids Screen 02/16/18 02/17/18 20:25 06:30 CBC w Diff WBC RBC Hgb Hct MCV MCH MCHC RDW Plt Count MPV Neut % (Auto) Lymph % (Auto) [place] % (Auto) Eos % (Auto) Baso % (Auto) Neut # (Auto) Lymph # (Auto) [place] # (Auto) Eos # (Auto) Baso # (Auto) WBC Differential Differential Comment PT INR APTT D-Dimer Quant (PE/DVT) Sodium Potassium Chloride Carbon Dioxide Anion Gap BUN Creatinine Estimated GFR Random Glucose Calcium Magnesium Total Bilirubin AST ALT Alkaline Phosphatase Total Creatine Kinase Troponin I B-Natriuretic Peptide Total Protein Albumin Lipase Ur Collection Type Clean catch Urine Color Yellow Urine Clarity Clear Urine pH 6.0 Ur Specific [place] 1.010 Urine Protein Negative Urine Glucose (UA) Negative Urine Ketones Negative Urine Occult Blood Negative Urine Nitrate Negative Urine Bilirubin Negative Urine Urobilinogen 0.2 Ur Leukocyte Esterase Negative Ur Squamous Epith Cells 0-5 Micro UA Comment Culture not ind Urine Culture Comments Culture not ind Urine Collection Time 630 Urine Opiates Screen Neg Ur Barbiturates Screen Neg Ur Amphetamines Screen Neg U Benzodiazepines Scrn Pos H Urine Cocaine Screen Neg U Cannabinoids Screen Neg - Imaging Impressions Abdomen/Pelvis CT 02/16/18 00:00 CONCLUSION: 1. No acute findings. Linear scarring right lower lobe. Nonobstructing 3 mm left renal calculus. Mild constipation. Chest X-Ray 02/16/18 13:33 CONCLUSION: 1. Minimal bibasilar linear parenchymal opacities likely reflecting atelectasis. Liver Ultrasound 02/17/18 00:00 CONCLUSION: 1. Unremarkable right upper quadrant ultrasound exam. 2. Specifically, no sonographic evidence for cholelithiasis or acute cholecystitis. Assessment and Plan - Assessment (1) Abdominal pain Code(s): R10.9 - Unspecified abdominal pain Status: Acute Plan: Atypical in nature, cont proton pump inhibitor unremarkable ultrasound and CT abdomen pelvis Patient reports improvement in symptoms after constipation relief (2) Chest pain Code(s): R07.9 - Chest pain, unspecified Status: Acute Plan: Likely GI related Patient with significant risk factors for coronary disease however Continue with chest pain evaluation and chest pain center Continue metoprolol and simvastatin given for coronary artery disease and stent (2) Chest pain Qualifiers: Chest pain type: unspecified Qualified Code(s): R07.9 - Chest pain, unspecified
[2018-02-17] MEDS ORDERED: Regadenoson Inj 0.4 MG/5 ML Syringe IV.PUSH ONE (14:23)
--- NOTE | 2018-02-17 14:56 | ECG ---
Date Performed: 02/16/2018 Time Performed: 19:22:29 PTAGE: 47 years EKG: SINUS BRADYCARDIA EARLY REPOLARIZATION BORDERLINE ECG PREVIOUS TRACING : 02/16/2018 16.35 DOCTOR: Rian Henderson Interpretating Date/Time 02/17/2018 14:54:48
--- NOTE | 2018-02-17 15:06 | ECG ---
Date Performed: 02/16/2018 Time Performed: 16:35:56 PTAGE: 47 years EKG: SINUS BRADYCARDIA EARLY REPOLARIZATION BORDERLINE ECG PREVIOUS TRACING : 02/16/2018 13.28 DOCTOR: Rian Henderson Interpretating Date/Time 02/17/2018 15:04:42
--- NOTE | 2018-02-17 15:18 | ECG ---
Date Performed: 02/16/2018 Time Performed: 13:28:13 PTAGE: 47 years EKG: Sinus rhythm EARLY REPOLARIZATION BORDERLINE ECG INTERPRETATION BASED ON A DEFAULT AGE OF 38 YEARS PREVIOUS TRACING : 11/28/2010 14.31 DOCTOR: Rian Henderson Interpretating Date/Time 02/17/2018 15:17:55
--- NOTE | 2018-02-17 15:44 | NM ---
EXAM DATE: 02/17/2018 3:13 PM EDT AGE/SEX: 47 years / Male INDICATIONS:Angina. Myocardial infarction Substernal chest pain with nausea. CLINICAL DATA: This is the patient's initial encounter. Patient reports that signs and symptoms have been present for 1 day and indicates a pain score of 4/10. MEDICAL/SURGICAL HISTORY: Carcinoma, bladder. Coronary artery stent. COMPARISON: No prior exams available for comparison. DOSE: 8.5 mCi Tc 99m Myoview at rest 25.4 mCi [id number] at stress 0.4 mg Lexiscan STRESS SYMPTOMS: Dyspnea, heart racing and flushed. EJECTION FRACTION: 65 % TECHNIQUE: The patient underwent pharmacologic stress with infusion of prescribed dose. Continuous ECG tracing was monitored during stress. Gated SPECT imaging was performed after stress and conventi onal SPECT imaging was performed at rest. The examination was performed on a SPECT/CT scanner, both attenuation and non-corrected datasets were reviewed. FINDINGS: Distribution: The maximum perfused segment at stress is in the anterior wall. Perfusion Study: The pattern of perfusion at stress is within normal limits. Gated Study: There are intact wall motion and wall thickening without hypokinetic or dyskinetic segm ents. The ejection fraction is calculated at 65%. RISK CATEGORY: Low (<1% Annual Motality Rate) CONCLUSION: 1. Unremarkable myocardial perfusion exam. Electronically signed by: Tomer Michaud MD 02/17/2018 3:43 PM EDT
--- NOTE | 2018-02-18 12:05 | TR ---
Date Performed: 02/17/2018 Time Performed: 14:31:28 DOCTOR: Jagruti Pandya DRUG LIST: CLINICAL HISTORY: CHEST PAIN REASON FOR TEST: Chest pain REASON FOR ENDING: OBSERVATION: CONCLUSION: Lexiscan stress test was performed under standard four minute protocol. Radionuclid e was injected one minute prior to ending the test. No electrocardiographic abormalities were present to suggest ischemia. Nuclear imaging and interpretation are pending. COMMENTS: no ischemia
== END 2018-02-17 17:20 | disposition home or self-care (01) ==
LOC: PHEDA 13:22 → PHED 13:22 → PH3 13:22
PROVIDERS: ADMIT Hospitalist; ATTEND Hospitalist